=== PATIENT | female | born 1965 | race Hispanic/Latino ===

== ENCOUNTER 2017-05-02 10:14 | Emergency (ER) | payer MEDICARE, OTHER ==
[2017-05-02 10:15] VITALS: BMI 40.3
[2017-05-02 11:18] LABS: BASO % 0.6 % (0.0-2.0); EOS # 0.4 K/uL (0.0-0.7); EOS % 4.8 % (0.0-4.0); HEMATOCRIT 38.8 % (34.0-47.0); LYMPH # 1.5 K/uL (1.0-4.3); MEAN CELL VOLUME 86.7 fL (81.0-99.0); MEAN CORPUSCULAR HGB CONC 33.5 g/dL (33.0-37.0); MEAN PLATELET VOLUME 7.3 fL (7.2-11.7); MONO # 0.5 K/uL (0.0-0.8); MONO % 5.1 % (0.0-10.0); RED CELL DISTRIBUTION WIDTH 14.4 % (11.5-14.5); WHITE BLOOD COUNT 8.9 K/uL (4.8-10.8)
[2017-05-02 11:27] LABS: CHLORIDE 100 mmol/L (98-107); POTASSIUM 3.8 mmol/L (3.6-5.2); SODIUM 140 mmol/L (132-148)
[2017-05-02 11:29] LABS: AST/SGOT 20 U/L (14-36); BILIRUBIN,TOTAL 0.6 mg/dL (0.2-1.3); CARBON DIOXIDE 31 mmol/L (22-30); GFR AFRICAN-AMERICAN > 60
[2017-05-02 11:30] LABS: ALB/GLOB RATIO 1.3 (1.0-2.1); ALKALINE PHOSPHATASE 103 U/L (38-126); ALT/SGPT 26 U/L (9-52); BLOOD UREA NITROGEN 12 mg/dL (7-17); CALCIUM 8.8 mg/dl (8.6-10.4); GLUCOSE,RANDOM 112 mg/dL (65-105); TOTAL PROTEIN 7.1 g/dL (6.3-8.3)
[2017-05-02] MEDS ORDERED: Sodium Chloride 0.9% 1,000 ML IV ONE (11:45)
[2017-05-02] MEDS ORDERED: Sodium Chloride 0.9% 1,000 ML ONE (11:54)
[2017-05-02] MEDS ORDERED: Morphine 4 MG/ML VIAL ONE (11:54)
[2017-05-02 13:36] LABS: RBC URINE 1 /hpf (0-3); URINE BILIRUBIN NEGATIVE (NEGATIVE); URINE BLOOD NEGATIVE (NEGATIVE); URINE COLOR Yellow (YELLOW); URINE GLUCOSE (UA) NORMAL (Normal); URINE KETONE NEGATIVE (NEGATIVE); URINE LEUKOCYTE ESTERASE NEG Leu/uL (Negative); URINE PROTEIN NEGATIVE (NEGATIVE); URINE UROBILINOGEN NORMAL mg/dL (0.2-1.0); WBC URINE 1 /hpf (0-5)
[2017-05-02] MEDS ORDERED: HYDROmorphone 1 mg/ml ISec IVP STA (13:53)
[2017-05-02] MEDS ORDERED: HYDROmorphone 1 mg/ml ISec ONE (14:23)
--- NOTE | 2017-05-02 14:24 | C.PDOC ---
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 Patient states that her pain is consistent with prior episodes. Notes that she is prescribed medication for the pain, but does not want to take it because she feels nauseated. Patient admits to non-bloody/non-bilious vomiting. Patient denies diarrhea, chest pain, shortness of breath, fevers, dysuria, or any other associated symptoms. No other complaints at this time. Of note, patient has been evaluated in ED for same complaint, multiple times in the past. Time Seen by Provider: 05/02/17 10:58 Chief Complaint (Nursing): Abdominal Pain Past Medical History Reviewed: Historical Data, Nursing Documentation, Vital Signs Vital Signs: Last Vital Signs Temp 98.9 F 05/02/17 15:55 Pulse 95 H 05/02/17 15:55 Resp 20 05/02/17 15:55 BP 130/83 05/02/17 15:55 Pulse Ox 97 05/02/17 16:21 - Medical History PMH: Anemia, Arthritis, Asthma, COPD (ASTHMA), Diabetes (NIDDM), Gastritis, HTN , Hypercholesterolemia Denies: Chronic Kidney Disease Surgical History: Appendectomy, Cholecystectomy - [facility] Procedures CENTRAL VENOUS CATHETER PLACEMENT WITH GUIDANCE (08/07/15) DRAINAGE OF STOMACH, ENDO, DIAGN (11/16/15) ESOPHAGOGASTRODUODENOSCOPY [EGD] W/CLOSED BIOPSY (12/11/14) INFLUENZA VACCINATION (10/15/13) INJECT/INFUSE NEC (01/17/14) INSERTION OF INFUSION DEV INTO L AXILLA VEIN, PERC APPROACH (04/03/16) OCCUPATIONAL THERAPY (05/22/14) OTH INCIDENT APPENDECTOMY (05/09/14) OTH LYSIS-PERITONEAL ADHES (05/09/14) PHYSICAL THERAPY NEC (05/22/14) VACCINATION NEC (10/15/13) VENOUS CATHETERIZATION NEC (05/09/14) Family History: States: No Known Family Hx - Social History Hx Tobacco Use: No Hx Alcohol Use: No Hx Substance Use: No - Immunization History Hx Tetanus Toxoid Vaccination: No Hx Influenza Vaccination: No Hx Pneumococcal Vaccination: No Review Of Systems Except As Marked, All Systems Reviewed And Found Negative. Constitutional: Negative for: Fever, Chills Cardiovascular: Negative for: Chest Pain, Palpitations Respiratory: Negative for: Shortness of Breath Gastrointestinal: Positive for: Nausea, Vomiting, Abdominal Pain Physical Exam - Physical Exam Appears: Non-toxic, No Acute Distress (Uncomfortable.), Other (Moaning. Morbidly obese.) Skin: Warm, Dry, No Rash Neck: Normal ROM Chest: Symmetrical Cardiovascular: Rhythm Regular, No Murmur Respiratory: Normal Breath Sounds, No Accessory Muscle Use Gastrointestinal/Abdominal: Soft, Tenderness (Mild, diffuse.), No Guarding, No Rebound, Other ((-)[place], (-)[place]) Extremity: Normal ROM ED Course And Treatment - Laboratory Results Result Diagrams: 05/02/17 11:03 05/02/17 11:03 O2 Sat by Pulse Oximetry: 97 Progress Note: Bloodwork, UA/HCG, ordered and reviewed. Patient treated with IV Diladud, IV Morphine, IVFs, IV Reglan and IV Zofran. Progress: Patient is resting comfortably and appears to be in no acute distress; Pts abdomen remains soft and non-tender, She is tolerating PO without difficulty. Patient feels comfortable going home. Patient will be discharged home for outpatient f/u with clinic/PMD in 1-2 days. Disposition - Disposition Referrals: Cammy Allison MD [Staff Provider] - Disposition: HOME/ ROUTINE Disposition Time: 15:30 Condition: STABLE Additional Instructions: FOLLOW UP WITH YOUR DOCTOR IN 1-2 DAYS USE MEDICATIONS NEEDED FOR PAIN RETURN TO ER IF SYMPTOMS WORSEN/RETURN Prescriptions: Acetaminophen with Codeine [Tylenol with Codeine #3 Tablet] 1 each PO Q6 PRN # 12 tablet PRN Reason: pain Ondansetron [Zofran Odt] 4 mg PO Q8 PRN #10 odt PRN Reason: Nausea/Vomiting Instructions: Abdominal Pain (ED) Print Language: BELARUSIAN - Clinical Impression Clinical Impression: Chronic abdominal pain - Scribe Statement The provider has reviewed the documentation as recorded by the Richy Roberto All medical record entries made by the Silasibgwendolyn were at my direction and personally dictated by me. I have reviewed the chart and agree that the record accurately reflects my personal performance of the history, physical exam, medical decision making, and the department course for this patient. I have also personally directed, reviewed, and agree with the discharge instructions and disposition.
[2017-05-02 15:56] VITALS: BP 130/83; PULSE 95; RESP 20; TEMP 98.9
[2017-05-02 16:22] VITALS: O2SAT 97
== END 2017-05-02 15:56 | disposition home or self-care (01) ==
LOC: C.ER 10:14
DX: G89.29 Other chronic pain (principal); R10.9 Unspecified abdominal pain
CPT/HCPCS: 80053; 81001; 83690; 84703; 85025; 96361; 96374; 96375; 99285; J1170; J2270; J2405; J2765; J7040

== ENCOUNTER 2017-07-28 10:47 | Inpatient (IN) | payer MEDICARE, OTHER ==
[2017-07-28 10:48] VITALS: BMI 40.3
--- NOTE | 2017-07-28 11:12 | C.PDOC ---
History Of Present Illness 52 yr old female brought in via EMS, with PMHx of anemia, arthritis, asthma, diabetes, gastritis, hypertension and hypercholesterolemia, presents to the ER with complaints of chest pain. Patient is accompanied by son. Video sign language was brought to bedside immediately. Son reports patient has long history of difficulty breathing and is on home O2 and patient has chronic pain and is on narcotics, which she recently ran out of. Upon arrival, patient is agitated, grabbing her chest and refusing to use the video sign language. Patient is hitting the stretcher and unwilling to be examined. ROS is limited due to agitation. Time Seen by Provider: 07/28/17 10:59 Chief Complaint (Nursing): Chest Pain History Per: Family (Son) History/Exam Limitations: no limitations Onset/Duration Of Symptoms: Persistent Past Medical History Reviewed: Historical Data, Nursing Documentation, Vital Signs Vital Signs: Last Vital Signs Temp 97.4 F L 07/28/17 18:03 Pulse 102 H 07/28/17 18:03 Resp 20 07/28/17 18:03 BP 154/92 H 07/28/17 18:03 Pulse Ox 94 L 07/28/17 18:03 - Medical History PMH: Anemia, Arthritis, Asthma, COPD (ASTHMA), Diabetes (NIDDM), Gastritis, HTN , Hypercholesterolemia Surgical History: Appendectomy, Cholecystectomy - [facility] Procedures CENTRAL VENOUS CATHETER PLACEMENT WITH GUIDANCE (08/07/15) DRAINAGE OF STOMACH, ENDO, DIAGN (11/16/15) ESOPHAGOGASTRODUODENOSCOPY [EGD] W/CLOSED BIOPSY (12/11/14) INFLUENZA VACCINATION (10/15/13) INJECT/INFUSE NEC (01/17/14) INSERTION OF INFUSION DEV INTO L AXILLA VEIN, PERC APPROACH (04/03/16) OCCUPATIONAL THERAPY (05/22/14) OTH INCIDENT APPENDECTOMY (05/09/14) OTH LYSIS-PERITONEAL ADHES (05/09/14) PHYSICAL THERAPY NEC (05/22/14) VACCINATION NEC (10/15/13) VENOUS CATHETERIZATION NEC (05/09/14) Family History: States: No Known Family Hx - Social History Hx Tobacco Use: No Hx Alcohol Use: No Hx Substance Use: No - Immunization History Hx Tetanus Toxoid Vaccination: No Hx Influenza Vaccination: No Hx Pneumococcal Vaccination: No Review Of Systems Review Of Systems: ROS cannot be obtained secondary to pt's inabilty to answer questions. Physical Exam - Physical Exam Appears: Combative, Agitated Skin: Normal Color, Warm, Dry Head: Atraumatic, Normacephalic Eye(s): bilateral: Normal Inspection, PERRL, EOMI Neck: Supple Chest: Symmetrical, No Deformity, No Tenderness Cardiovascular: Rhythm Regular Respiratory: Normal Breath Sounds, No Rales, No Rhonchi, No Wheezing Gastrointestinal/Abdominal: Soft, No Tenderness, No Mass, No Distention Extremity: Normal ROM ED Course And Treatment - Laboratory Results Result Diagrams: 07/28/17 11:56 07/28/17 11:56 O2 Sat by Pulse Oximetry: 96 (RA) Pulse Ox Interpretation: Normal - Radiology CXR: Viewed By Me, Read By Radiologist CXR Interpretation: Yes: No Acute Disease Medical Decision Making Medical Decision Making: Cxray negative. Trop x 1 negative. EKG shows NSR at 143bpm with non-specific ST changes. On reevaluation, patient is more calm and agrees to use video sign language. She reports midsternal non-radiating chest pain. She denies fever, chills, cough, uri, abdominal pain. She reports that she ran out of her narcotic medication and has chronic pain. She reports feeling better after morphine and patient actually slept in ED. Spoke to PMD Dr. Betancur and ordered KUB to r/o obstruction (which was negative). Due to age and obesity, as well as lack of prior cardiac workup, will transfer to tele observation for chest pain. Disposition - Disposition Disposition: HOSPITALIZED Disposition Time: 13:49 Condition: FAIR - Clinical Impression Clinical Impression: Chest pain - Scribe Statement The provider has reviewed the documentation as recorded by the Silasibe Jacey Guerra Provider Attestation: All medical record entries made by the Silasibgwendolyn were at my direction and personally dictated by me. I have reviewed the chart and agree that the record accurately reflects my personal performance of the history, physical exam, medical decision making, and the department course for this patient. I have also personally directed, reviewed, and agree with the discharge instructions and disposition.
[2017-07-28] MEDS ORDERED: Sodium Chloride 0.9% 500 ML IV ONE (11:19)
[2017-07-28] MEDS ORDERED: Morphine 4 MG/ML VIAL IV ONE (11:21)
[2017-07-28] MEDS ORDERED: Sodium Chloride 0.9% 1,000 ML ONE (11:39)
[2017-07-28] MEDS ORDERED: Morphine 4 MG/ML VIAL ONE ×2 (11:39→12:47)
[2017-07-28 11:59] LABS: BASO # 0.1 K/uL (0.0-0.2); EOS # 0.5 K/uL (0.0-0.7); EOS % 4.3 % (0.0-4.0); HEMATOCRIT 39.9 % (34.0-47.0); LYMPH # 1.9 K/uL (1.0-4.3); LYMPH % 15.4 % (20.0-40.0); MEAN CELL VOLUME 87.9 fL (81.0-99.0); MEAN CORPUSCULAR HEMOGLOBIN 28.9 pg (27.0-31.0); MEAN CORPUSCULAR HGB CONC 32.8 g/dL (33.0-37.0); MEAN PLATELET VOLUME 6.8 fL (7.2-11.7); MONO # 0.8 K/uL (0.0-0.8); NRBC % 0.1 % (0.0-2.0); RED CELL DISTRIBUTION WIDTH 14.5 % (11.5-14.5); WHITE BLOOD COUNT 12.1 K/uL (4.8-10.8)
[2017-07-28 12:12] LABS: CHLORIDE 104 mmol/L (98-107)
--- NOTE | 2017-07-28 12:12 | RAD ---
HISTORY: chest pain COMPARISON: 06/12/2016 FINDINGS: LUNGS: No active pulmonary disease. PLEURA: No significant pleural effusion identified, no pneumothorax apparent. CARDIOVASCULAR: Normal. OSSEOUS STRUCTURES: No significant abnormalities. VISUALIZED UPPER ABDOMEN: Normal. OTHER FINDINGS: Large body habitus suggest IMPRESSION: No active disease.
[2017-07-28 12:13] LABS: POTASSIUM 4.8 mmol/L (3.6-5.2); SODIUM 141 mmol/L (132-148)
[2017-07-28 12:15] LABS: ALKALINE PHOSPHATASE 104 U/L (38-126); AST/SGOT 25 U/L (14-36); CARBON DIOXIDE 27 mmol/L (22-30); GFR AFRICAN-AMERICAN > 60
[2017-07-28 12:16] LABS: ALB/GLOB RATIO 1.2 (1.0-2.1); ALT/SGPT 31 U/L (9-52); BLOOD UREA NITROGEN 12 mg/dL (7-17); CALCIUM 9.2 mg/dl (8.6-10.4); GLUCOSE,RANDOM 98 mg/dL (65-105); TOTAL PROTEIN 7.1 g/dL (6.3-8.3)
[2017-07-28] MEDS ORDERED: Albuterol-Ipratrop 3 mg / 0.5 (3 ml) UD INH STA (13:50)
[2017-07-28] MEDS ORDERED: Albuterol 0.083% Inhal Sol (2.5 mg/3 mL) UD INH STA (13:50)
[2017-07-28] MEDS ORDERED: Albuterol 0.083% Inhal Sol (2.5 mg/3 mL) UD ONE (13:55)
--- NOTE | 2017-07-28 17:00 | RAD ---
HISTORY: abdominal pain COMPARISON: 03/27/2015 FINDINGS: BOWEL: Limited exam given large body habitus. Nevertheless moderate stool in the transverse colon is noted. No dilated small or large bowel loops are seen. No free air on the upright view. BONES: Normal. OTHER FINDINGS: Right upper quadrant cholecystectomy clips IMPRESSION: Moderate stool transverse colon. No mechanical obstruction or free air appreciated
[2017-07-28] MEDS: Albuterol-Ipratrop 3 mg / 0.5 (3 ml) UD INH SCH ×2 (19:16→23:27)
[2017-07-28] MEDS ORDERED: Moxifloxacin IV 400mg/250ml NS 400 MG/250 ML BAG IVPB SCH (20:00)
[2017-07-28] MEDS: (Novolog) Insulin Aspart, Recombinant 100 u/ml 10 ml vial SC SCH (21:21)
[2017-07-28] MEDS: Oxycodone/Acetaminophen 5/325 mg Tab PO PRN (23:20)
[2017-07-28] MEDS: MethylPREDNISolone 40 mg Vial IVP SCH (23:21)
[2017-07-29] MEDS: Albuterol-Ipratrop 3 mg / 0.5 (3 ml) UD INH SCH ×6 (03:06→21:48)
[2017-07-29] MEDS: MethylPREDNISolone 40 mg Vial IVP SCH ×3 (05:46→17:35)
[2017-07-29] MEDS: (Novolog) Insulin Aspart, Recombinant 100 u/ml 10 ml vial SC SCH ×4 (07:30→22:00)
[2017-07-29] MEDS: Oxycodone/Acetaminophen 5/325 mg Tab PO PRN ×2 (09:30→16:08)
[2017-07-29] MEDS ORDERED: Moxifloxacin IV 400mg/250ml NS 400 MG/250 ML BAG IVPB SCH ×2 (10:00)
[2017-07-29] MEDS ORDERED: Pneumococcal 23-Valent Vaccine IM ONE (10:00)
[2017-07-29] MEDS: Enoxaparin 40 mg Syringe SC SCH (10:23)
[2017-07-29] MEDS ORDERED: Albuterol-Ipratrop 3 mg / 0.5 (3 ml) UD INH ONE (11:15)
--- NOTE | 2017-07-29 11:16 | CP.PCM.PN ---
Subjective - Date & Time of Evaluation Date of Evaluation: 07/29/17 Time of Evaluation: 10:59 - Subjective Subjective: PGY 2 Progress Note- Dr. Allison's service CC: shortness of breath HPI: 52 year old (deaf and mute) female with PMHx significant for asthma, HTN and questionable anxiety presents with complaints of shortness of breath for the past 3-4 days. Patient states that she normally takes her ventolin and spiriva medications as indicated. Per ED note: Patient's son reported that patient has a long history of difficulty breathing requiring home oxygen therapy. Patient also has chronic pain and is on narcotics, which she recently ran out of. History was limited due to patient's acute asthma exacerbation. Video Language interpreters were utilized but again, history was difficult to obtain due to patient's condition. Per ED Note and Medical record: PMHX-anemia, arthritis, asthma, diabetes, gastritis, hypertension and hypercholesterolemia PSHx- Ex Lap with incidental appendectomy, Cholecystectomy Fam Hx- Unknown Meds: Spiriva and Ventolin Social- Patient is a former smoker. Unknown Alcohol or drug use status. Allergies- NKDA Objective - Vital Signs/Intake and Output Vital Signs (last 24 hours): Temp Pulse Resp BP Pulse Ox 97.8 F 90 20 142/84 97 07/29/17 08:39 07/29/17 08:39 07/29/17 08:39 07/29/17 08:39 07/29/17 08:39 - Medications Medications: Current Medications Albuterol/Ipratropium (Duoneb 3 Mg/0.5 Mg (3 Ml) Ud) 3 ml INH ONCE ONE Stop: 07/29/17 11:16 Albuterol/Ipratropium (Duoneb 3 Mg/0.5 Mg (3 Ml) Ud) 3 ml INH RQ3 [facility] Enoxaparin Sodium (Lovenox) 40 mg SC DAILY [facility] Last Admin: 07/29/17 10:23 Dose: 40 mg Insulin Aspart (Novolog) 0 unit SC ACHS [facility] PRN Reason: Protocol Last Admin: 07/29/17 07:30 Dose: Not Given Methylprednisolone (Solu-Medrol) 40 mg IVP Q6 [facility] Last Admin: 07/29/17 05:46 Dose: 40 mg Moxifloxacin HCl (Avelox) 400 mg PO DAILY [facility] Moxifloxacin HCl (Avelox) 400 mg PO DAILY [facility] Oxycodone/Acetaminophen (Percocet 5/325 Mg Tab) 1 tab PO Q4H PRN PRN Reason: Pain, moderate (4-7) Stop: 07/31/17 18:04 Last Admin: 07/29/17 09:30 Dose: 1 tab Pantoprazole Sodium (Protonix Inj) 40 mg IVP DAILY [facility] Last Admin: 07/29/17 10:22 Dose: 40 mg Tiotropium [place] (Spiriva) 18 mcg INH RQ24 [facility] Tiotropium [place] (Spiriva Inhalation Handihaler Device) 1 inhaler INH ONCE ONE Stop: 07/29/17 11:06 - Constitutional Appears: Non-toxic, In Acute Distress, Older Than Stated Age - Head Exam Head Exam: ATRAUMATIC, NORMAL INSPECTION, NORMOCEPHALIC - Eye Exam Eye Exam: EOMI, Normal appearance, PERRL Pupil Exam: NORMAL ACCOMODATION - ENT Exam ENT Exam: Mucous Membranes Moist - Neck Exam Neck Exam: Full ROM - Respiratory Exam Respiratory Exam: Wheezes. absent: NORMAL BREATHING PATTERN - Cardiovascular Exam Cardiovascular Exam: +S1, +S2 - GI/Abdominal Exam GI & Abdominal Exam: Distended, Soft, Normal Bowel Sounds. absent: Firm - Extremities Exam Extremities Exam: Full ROM, Normal Capillary Refill, Normal Inspection, Tenderness (Right LE greater than Left LE) - Back Exam Back Exam: Full ROM - Neurological Exam Neurological Exam: Alert, Awake, CN II-XII Intact, Oriented x3 - Psychiatric Exam Psychiatric exam: Anxious, Normal Affect, Normal Mood - Skin Skin Exam: Dry, Intact, Warm - Additional Findings Additional findings: large body habitus Assessment and Plan - Assessment and Plan (Free Text) Assessment: Asthma exacerbation Assessment & Plan: In mild distress earlier this morning Stat Duoneb treatment given, Duonebs increased to Q3, spiriva added on board. Advair pump bedside. Solumedrol dose given. WBC 12.1 on admission. Chest XRAY performed in the ED did not show signs of active disease and thus antibiotics were discontinued. This is likely asthma exacerbation and not pneumonia. Continue Solumedrol 40 mg IVP q6H Continue meds as scheduled and mentioned above On Oxygen n/c Chest Pain Assessment & Plan: On Telemetry GUERLINE negative x3 EKG- Sinus tachycardia Although considerations were made for CT scan of chest or VQ scan to rule out PE , it was later discussed that patient's presentation was likely moreso due to asthma in light of chronic medical history and thus this study was not performed as decided by attending. Patient's prior medical course well known to attending physician. D-Dimer- Negative findings. F/U venous dopplers to rule out DVT Lower extremity Leg Pain Assessment & Plan: F/U venous dopplers Right LE more tender than left Abdominal pain Assessment & Plan: Likely secondary to post operative adhesions/opioid induced constipation due to longtime use of opioids Constipation Assessment & Plan: As noted above Colace daily Increase water intake Prophylactic measure Assessment & Plan: Protonix Lovenox [place] Discussed extensively with attending. All decision management and planning determined by Dr. Allison.
[2017-07-30] MEDS: Albuterol-Ipratrop 3 mg / 0.5 (3 ml) UD INH SCH ×10 (00:05→23:37)
[2017-07-30] MEDS: MethylPREDNISolone 40 mg Vial IVP SCH ×5 (00:33→23:48)
[2017-07-30 07:25] LABS: BASO % 0.1 % (0.0-2.0); HEMATOCRIT 38.1 % (34.0-47.0); LYMPH # 0.7 K/uL (1.0-4.3); LYMPH % 5.1 % (20.0-40.0); MEAN CELL VOLUME 88.2 fL (81.0-99.0); MEAN CORPUSCULAR HEMOGLOBIN 28.6 pg (27.0-31.0); MEAN CORPUSCULAR HGB CONC 32.4 g/dL (33.0-37.0); MEAN PLATELET VOLUME 7.1 fL (7.2-11.7); MONO # 0.3 K/uL (0.0-0.8); MONO % 2.4 % (0.0-10.0); PLATELET COUNT 285 K/uL (130-400); RED CELL DISTRIBUTION WIDTH 14.6 % (11.5-14.5); WHITE BLOOD COUNT 13.6 K/uL (4.8-10.8)
[2017-07-30 07:59] LABS: ALB/GLOB RATIO 1.4 (1.0-2.1); ALKALINE PHOSPHATASE 93 U/L (38-126); ALT/SGPT 26 U/L (9-52); AST/SGOT 12 U/L (14-36); BILIRUBIN,TOTAL 0.3 mg/dL (0.2-1.3); BLOOD UREA NITROGEN 16 mg/dL (7-17); CALCIUM 9.7 mg/dl (8.6-10.4); CARBON DIOXIDE 29 mmol/L (22-30); CHLORIDE 99 mmol/L (98-107); GFR AFRICAN-AMERICAN > 60; GLUCOSE,RANDOM 144 mg/dL (65-105); MAGNESIUM 2.2 mg/dL (1.6-2.3); PHOSPHOROUS 2.6 mg/dL (2.5-4.5); POTASSIUM 4.2 mmol/L (3.6-5.2); SODIUM 137 mmol/L (132-148); TOTAL PROTEIN 6.3 g/dL (6.3-8.3)
[2017-07-30] MEDS: (Novolog) Insulin Aspart, Recombinant 100 u/ml 10 ml vial SC SCH ×4 (08:03→21:51)
[2017-07-30] MEDS: Oxycodone/Acetaminophen 5/325 mg Tab PO PRN ×2 (08:30→17:49)
[2017-07-30] MEDS: Tiotropium 18 mcg Cap For Inhalation INH SCH (08:54)
[2017-07-30] MEDS: Enoxaparin 40 mg Syringe SC SCH (09:48)
[2017-07-30 12:01] LABS: NEUTROPHIL 88 % (50-75); TOTAL CELLS COUNTED 100
[2017-07-30] MEDS ORDERED: Albuterol 0.042% Inhal Sol (1.25 mg/3 mL) UD INH ONE (12:26)
[2017-07-30] MEDS: guaiFENesin 200 mg/10 ml Syrup UD PO PRN ×2 (12:31→17:49)
[2017-07-30] MEDS: Fluticasone-Salmeterol 500-50mcg Diskus INH SCH (19:29)
[2017-07-31] MEDS: Albuterol-Ipratrop 3 mg / 0.5 (3 ml) UD INH SCH ×8 (02:11→23:37)
[2017-07-31] MEDS: MethylPREDNISolone 40 mg Vial IVP SCH ×4 (06:26→23:55)
[2017-07-31] MEDS: (Novolog) Insulin Aspart, Recombinant 100 u/ml 10 ml vial SC SCH ×4 (08:06→22:36)
[2017-07-31] MEDS: Fluticasone-Salmeterol 500-50mcg Diskus INH SCH ×2 (08:25→19:29)
[2017-07-31] MEDS: Tiotropium 18 mcg Cap For Inhalation INH SCH (08:26)
[2017-07-31] MEDS: Enoxaparin 40 mg Syringe SC SCH (09:06)
[2017-07-31] MEDS: guaiFENesin 200 mg/10 ml Syrup UD PO PRN ×2 (09:06→18:17)
[2017-07-31] MEDS: Oxycodone/Acetaminophen 5/325 mg Tab PO PRN ×2 (09:06→14:51)
[2017-07-31] MEDS ORDERED: Oxycodone/Acetaminophen 5/325 mg Tab PO ONE (21:33)
[2017-08-01] MEDS: Albuterol-Ipratrop 3 mg / 0.5 (3 ml) UD INH SCH ×7 (02:06→20:09)
[2017-08-01] MEDS: MethylPREDNISolone 40 mg Vial IVP SCH ×3 (05:42→17:28)
[2017-08-01] MEDS: Oxycodone/Acetaminophen 5/325 mg Tab PO PRN ×3 (05:48→18:38)
[2017-08-01] MEDS: Fluticasone-Salmeterol 500-50mcg Diskus INH SCH ×2 (07:19→20:11)
[2017-08-01] MEDS: Tiotropium 18 mcg Cap For Inhalation INH SCH (07:19)
[2017-08-01] MEDS: (Novolog) Insulin Aspart, Recombinant 100 u/ml 10 ml vial SC SCH ×4 (08:17→21:20)
[2017-08-01] MEDS: Enoxaparin 40 mg Syringe SC SCH (09:24)
[2017-08-01] MEDS: guaiFENesin 200 mg/10 ml Syrup UD PO PRN (22:07)
[2017-08-02] MEDS: Albuterol-Ipratrop 3 mg / 0.5 (3 ml) UD INH SCH ×9 (00:34→23:43)
[2017-08-02] MEDS: MethylPREDNISolone 40 mg Vial IVP SCH ×4 (00:56→18:00)
[2017-08-02 01:48] VITALS: RESP 20
[2017-08-02] MEDS: Oxycodone/Acetaminophen 5/325 mg Tab PO PRN ×2 (03:41→18:00)
[2017-08-02] MEDS: Fluticasone-Salmeterol 500-50mcg Diskus INH SCH (07:37)
[2017-08-02] MEDS: Tiotropium 18 mcg Cap For Inhalation INH SCH (07:37)
[2017-08-02] MEDS: (Novolog) Insulin Aspart, Recombinant 100 u/ml 10 ml vial SC SCH ×4 (08:08→21:18)
--- NOTE | 2017-08-02 09:52 | CP.PCM.PN ---
Subjective - Date & Time of Evaluation Date of Evaluation: 08/02/17 Time of Evaluation: 07:20 - Subjective Subjective: PGY2 Resident - Medicine Progress Note Patient seen and examined at bedside. No overnight events per nursing. Patient reports that she continues to feel SOB, and has not improved much. She admits to non-productive cough for several days, and is still not able to produce much mucous, despite feeling congested. Otherwise she has no acute complaints, is tolerating her diet, and reports regular BMs. Objective - Vital Signs/Intake and Output Vital Signs (last 24 hours): Temp Pulse Resp BP Pulse Ox 97.5 F L 107 H 20 139/89 95 08/02/17 08:42 08/02/17 08:42 08/02/17 08:42 08/02/17 08:42 08/02/17 08:42 - Medications Medications: Current Medications Albuterol/Ipratropium (Duoneb 3 Mg/0.5 Mg (3 Ml) Ud) 3 ml INH RQ3 [facility] Last Admin: 08/02/17 09:18 Dose: 3 ml Alprazolam (Xanax) 0.25 mg PO Q12 PRN PRN Reason: Anxiety Stop: 08/08/17 10:01 Last Admin: 08/01/17 09:00 Dose: 0.25 mg Enoxaparin Sodium (Lovenox) 40 mg SC DAILY [facility] Last Admin: 08/01/17 09:24 Dose: 40 mg Guaifenesin (Robitussin) 200 mg PO Q4H PRN PRN Reason: Cough and congestion Last Admin: 08/01/17 22:07 Dose: 200 mg Insulin Aspart (Novolog) 0 unit SC ACHS [facility] PRN Reason: Protocol Last Admin: 08/02/17 08:08 Dose: Not Given Methylprednisolone (Solu-Medrol) 40 mg IVP Q6 [facility] Last Admin: 08/02/17 07:52 Dose: 40 mg Oxycodone/Acetaminophen (Percocet 5/325 Mg Tab) 1 tab PO Q4H PRN PRN Reason: Pain, moderate (4-7) Stop: 08/03/17 22:32 Last Admin: 08/02/17 03:41 Dose: 1 tab Pantoprazole Sodium (Protonix Inj) 40 mg IVP DAILY [facility] Last Admin: 08/01/17 09:00 Dose: 40 mg Fluticasone/Salmeterol (Advair Diskus 500/50) 1 puff INH RQ12 [facility] Last Admin: 08/02/17 07:37 Dose: Not Given Tiotropium [place] (Spiriva) 18 mcg INH RQ24 [facility] Last Admin: 08/02/17 07:37 Dose: Not Given - Labs Labs: 07/30/17 07:16 07/30/17 07:16 - Additional Findings Additional findings: - Constitutional Appears: Non-toxic, In Acute Distress, Older Than Stated Age - Head Exam Head Exam: ATRAUMATIC, NORMAL INSPECTION, NORMOCEPHALIC - Eye Exam Eye Exam: EOMI, Normal appearance, PERRL Pupil Exam: NORMAL ACCOMODATION - ENT Exam ENT Exam: Mucous Membranes Moist - Neck Exam Neck Exam: Full ROM - Respiratory Exam Respiratory Exam: Wheezes (diffuse, bilateral). absent: NORMAL BREATHING PATTERN, Rhonchi, Rales -tenderness to palpation of chest wall, b/l sternum rib 2-5 - Cardiovascular Exam Cardiovascular Exam: +S1, +S2, Regular Rate - intermittently tachycardic - GI/Abdominal Exam GI & Abdominal Exam: Distended, Soft, Normal Bowel Sounds. absent: Firm - Extremities Exam Extremities Exam: Full ROM, Normal Capillary Refill, Normal Inspection, Tenderness (Right LE greater than Left LE, mildly improved) - Back Exam Back Exam: Full ROM - Neurological Exam Neurological Exam: Alert, Awake, CN II-XII Intact, Oriented x3 - Psychiatric Exam Psychiatric exam: Anxious, Normal Affect, Normal Mood - Skin Skin Exam: Dry, Intact, Warm - Additional Findings Additional findings: large body habitus Assessment and Plan - Assessment and Plan (Free Text) Assessment: Asthma exacerbation Assessment & Plan: 08/02: Patient saturating well on 2-3L NC. Continues to complain of non- productive cough with congestion. Changed Robitussin from PRN to Q6 [facility]. In mild distress earlier this morning Stat Duoneb treatment given, Duonebs increased to Q3, spiriva added on board. Advair pump bedside. Solumedrol dose given. WBC 12.1 on admission. Chest XRAY performed in the ED did not show signs of active disease and thus antibiotics were discontinued. This is likely asthma exacerbation and not pneumonia. Continue Solumedrol 40 mg IVP q6H Continue meds as scheduled and mentioned above Costochondritis Assessment & Plan: 08/02: likely costochondritis 2/2 coughing for several days. tenderness to palpation of chest wall. Tylenol 650mg PO Q6H PRN pain. On Telemetry GUERLINE negative x3 EKG- Sinus tachycardia Although considerations were made for CT scan of chest or VQ scan to rule out PE , it was later discussed that patient's presentation was likely moreso due to asthma in light of chronic medical history and thus this study was not performed as decided by attending. Patient's prior medical course well known to attending physician. D-Dimer- Negative findings. F/U venous dopplers - prelim negative Lower extremity Leg Pain Assessment & Plan: 08/02: venous Doppler - negative. Right LE more tender than left Abdominal pain Assessment & Plan: 08/02: abdominal Xray shows stool in transverse colon, no obstruction. Likely secondary to post operative adhesions/opioid induced constipation due to longtime use of opioids Constipation Assessment & Plan: 08/02: abdominal Xray shows stool in transverse colon, no obstruction. As noted above Colace daily Increase water intake Prophylactic measure Assessment & Plan: Protonix Lovenox [place] Discussed extensively with attending. All decision management and planning determined by Dr. Allison.
[2017-08-02] MEDS: Enoxaparin 40 mg Syringe SC SCH (09:58)
--- NOTE | 2017-08-02 10:53 | VASCLAB ---
PROCEDURE: Lower Extremity Venous Duplex Exam. HISTORY: Unilateral leg pain PRIORS: None. TECHNIQUE: Bilateral common femoral, femoral, popliteal and posterior tibial, peroneal and great saphenous veins were evaluated. Flow was assessed with color Doppler, compressibility, assessment of phasic flow and augmentation response. Report prepared by Ramon Purvis, RIGOBERTO, RVT FINDINGS: RIGHT: 1. Common Femoral Vein: 1.1. Compressibility - Fully compressible: Thrombus - None : Flow - Phasic: Augmentation -Normal: Reflux - None. 2. Femoral Vein: 2.1. Compressibility - Fully compressible: Thrombus - None : Flow - Phasic: Augmentation -Normal: Reflux - None. 3. Popliteal Vein: 3.1. Compressibility - Fully compressible: Thrombus - None : Flow - Phasic: Augmentation -Normal: Reflux - None. 4. Posterior Tibial Vein: 4.1. Compressibility - Fully compressible: Thrombus - None: Flow - Phasic: Augmentation -Normal: Reflux - None. 5. Peroneal Vein: 5.1. Compressibility - Fully compressible: Thrombus - None: Flow - Phasic: Augmentation -Normal: Reflux - None. 6. Great Saphenous Vein: 6.1. Compressibility - Fully compressible: Thrombus - None: Flow - Phasic: Augmentation - Normal: Reflux - None. LEFT: 1. Common Femoral Vein: 1.1. Compressibility - Fully compressible: Thrombus - None: Flow - Phasic: Augmentation -Normal: Reflux - None. 2. Femoral Vein: 2.1. Compressibility - Fully compressible: Thrombus - None: Flow - Phasic: Augmentation -Normal: Reflux - None. 3. Popliteal Vein: 3.1. Compressibility - Fully compressible: Thrombus - None : Flow - Phasic: Augmentation -Normal: Reflux - None. 4. Posterior Tibial Vein: 4.1. Compressibility - Fully compressible: Thrombus - None: Flow - Phasic: Augmentation -Normal: Reflux - None. 5. Peroneal Vein: 5.1. Compressibility - Fully compressible: Thrombus - None: Flow - Phasic: Augmentation -Normal: Reflux - None. 6. Great Saphenous Vein: 6.1. Compressibility - Fully compressible: Thrombus - None: Flow - Phasic: Augmentation - Normal: Reflux - None. OTHER FINDINGS: Right: None significant. Left: None significant. IMPRESSION: Right: No evidence of deep or superficial vein thrombosis of the right lower extremity. Normal valve function noted of the right side. Left: No evidence of deep or superficial vein thrombosis of the left lower extremity. Normal valve function noted of the left side.
[2017-08-02 11:28] LABS: BASO % 0.2 % (0.0-2.0); HEMATOCRIT 40.4 % (34.0-47.0); LYMPH # 0.7 K/uL (1.0-4.3); MEAN CELL VOLUME 88.1 fL (81.0-99.0); MEAN CORPUSCULAR HEMOGLOBIN 28.8 pg (27.0-31.0); MEAN CORPUSCULAR HGB CONC 32.6 g/dL (33.0-37.0); MEAN PLATELET VOLUME 7.1 fL (7.2-11.7); MONO # 0.6 K/uL (0.0-0.8); PLATELET COUNT 313 K/uL (130-400); WHITE BLOOD COUNT 14.7 K/uL (4.8-10.8)
[2017-08-02 11:40] LABS: CHLORIDE 100 mmol/L (98-107); POTASSIUM 4.2 mmol/L (3.6-5.2); SODIUM 143 mmol/L (132-148)
[2017-08-02 11:42] LABS: ALB/GLOB RATIO 1.4 (1.0-2.1); ALKALINE PHOSPHATASE 86 U/L (38-126); ALT/SGPT 40 U/L (9-52); AST/SGOT 15 U/L (14-36); BILIRUBIN,TOTAL 0.5 mg/dL (0.2-1.3); BLOOD UREA NITROGEN 27 mg/dL (7-17); CARBON DIOXIDE 27 mmol/L (22-30); GFR AFRICAN-AMERICAN > 60; TOTAL PROTEIN 6.8 g/dL (6.3-8.3)
[2017-08-02 11:43] LABS: CALCIUM 9.3 mg/dl (8.6-10.4); GLUCOSE,RANDOM 160 mg/dL (65-105); PHOSPHOROUS 2.6 mg/dL (2.5-4.5)
[2017-08-02 11:53] LABS: NEUTROPHIL 87 % (50-75); TOTAL CELLS COUNTED 100
[2017-08-02] MEDS: guaiFENesin 200 mg/10 ml Syrup UD PO SCH ×2 (18:00→21:20)
[2017-08-03] MEDS: Oxycodone/Acetaminophen 5/325 mg Tab PO PRN ×2 (00:08→05:35)
[2017-08-03] MEDS: MethylPREDNISolone 40 mg Vial IVP SCH ×3 (00:08→12:35)
--- NOTE | 2017-08-03 00:40 | CARD ---
APPROVED REPORT EKG Measurement Heart [id number] <Conclusion> Sinus tachycardia Low voltage QRS Nonspecific ST abnormality Abnormal ECG
[2017-08-03] MEDS: Albuterol-Ipratrop 3 mg / 0.5 (3 ml) UD INH SCH ×4 (02:04→11:54)
[2017-08-03] MEDS: guaiFENesin 200 mg/10 ml Syrup UD PO SCH ×3 (04:53→10:10)
[2017-08-03 06:32] LABS: BASO % 0.1 % (0.0-2.0); HEMATOCRIT 38.7 % (34.0-47.0); LYMPH # 1.1 K/uL (1.0-4.3); LYMPH % 7.6 % (20.0-40.0); MEAN CELL VOLUME 87.3 fL (81.0-99.0); MEAN CORPUSCULAR HEMOGLOBIN 29.3 pg (27.0-31.0); MEAN CORPUSCULAR HGB CONC 33.6 g/dL (33.0-37.0); MONO # 0.8 K/uL (0.0-0.8); MONO % 5.8 % (0.0-10.0); NRBC % 0.1 % (0.0-2.0); PLATELET COUNT 262 K/uL (130-400); RED CELL DISTRIBUTION WIDTH 14.9 % (11.5-14.5); WHITE BLOOD COUNT 14.5 K/uL (4.8-10.8)
[2017-08-03 07:32] LABS: CHLORIDE 100 mmol/L (98-107); POTASSIUM 4.2 mmol/L (3.6-5.2); SODIUM 137 mmol/L (132-148)
[2017-08-03 07:34] LABS: AST/SGOT 14 U/L (14-36); BILIRUBIN,TOTAL 0.4 mg/dL (0.2-1.3); CARBON DIOXIDE 27 mmol/L (22-30); GFR AFRICAN-AMERICAN > 60
[2017-08-03 07:35] LABS: ALB/GLOB RATIO 1.4 (1.0-2.1); ALKALINE PHOSPHATASE 79 U/L (38-126); ALT/SGPT 33 U/L (9-52); BLOOD UREA NITROGEN 26 mg/dL (7-17); CALCIUM 9.1 mg/dl (8.6-10.4); GLUCOSE,RANDOM 121 mg/dL (65-105); MAGNESIUM 2.2 mg/dL (1.6-2.3); PHOSPHOROUS 3.9 mg/dL (2.5-4.5); TOTAL PROTEIN 6.4 g/dL (6.3-8.3)
[2017-08-03] MEDS: Fluticasone-Salmeterol 500-50mcg Diskus INH SCH (08:05)
[2017-08-03] MEDS: Tiotropium 18 mcg Cap For Inhalation INH SCH (08:05)
[2017-08-03] MEDS: (Novolog) Insulin Aspart, Recombinant 100 u/ml 10 ml vial SC SCH ×2 (08:08→12:30)
[2017-08-03 08:31] VITALS: BP 115/81; TEMP 97.8
[2017-08-03 09:04] LABS: NEUTROPHIL 89 % (50-75); TOTAL CELLS COUNTED 100
[2017-08-03] MEDS: Enoxaparin 40 mg Syringe SC SCH (10:09)
--- NOTE | 2017-08-03 11:33 | CP.PCM.PN ---
Subjective - Date & Time of Evaluation Date of Evaluation: 08/03/17 Time of Evaluation: 11:30 - Subjective Subjective: PROGRESS NOTE. Service for Dr. Allison Pt seen and examined at bedside. No acute distress. No events overnight. Pt still having some constipation. Pt feels breathing is better, with some coughing still. No fevers, chills, vomiting, chest pain, shortness of breath. Objective - Vital Signs/Intake and Output Vital Signs (last 24 hours): Temp Pulse Resp BP Pulse Ox 97.8 F 91 H 20 115/81 95 08/03/17 08:29 08/03/17 08:29 08/03/17 08:29 08/03/17 08:29 08/03/17 08:29 - Medications Medications: Current Medications Albuterol/Ipratropium (Duoneb 3 Mg/0.5 Mg (3 Ml) Ud) 3 ml INH RQ3 [facility] Last Admin: 08/03/17 08:04 Dose: 3 ml Alprazolam (Xanax) 0.25 mg PO Q12 PRN PRN Reason: Anxiety Stop: 08/08/17 10:01 Last Admin: 08/02/17 21:20 Dose: 0.25 mg Enoxaparin Sodium (Lovenox) 40 mg SC DAILY [facility] Last Admin: 08/03/17 10:09 Dose: 40 mg Guaifenesin (Robitussin) 200 mg PO Q6H [facility] Last Admin: 08/03/17 10:10 Dose: 200 mg Insulin Aspart (Novolog) 0 unit SC ACHS [facility] PRN Reason: Protocol Last Admin: 08/03/17 08:08 Dose: Not Given Methylprednisolone (Solu-Medrol) 40 mg IVP Q6 [facility] Last Admin: 08/03/17 05:37 Dose: 40 mg Oxycodone/Acetaminophen (Percocet 5/325 Mg Tab) 1 tab PO Q4H PRN PRN Reason: Pain, severe (8-10) Stop: 08/03/17 22:32 Last Admin: 08/03/17 05:35 Dose: 1 tab Pantoprazole Sodium (Protonix Inj) 40 mg IVP DAILY [facility] Last Admin: 08/03/17 10:09 Dose: 40 mg Fluticasone/Salmeterol (Advair Diskus 500/50) 1 puff INH RQ12 [facility] Last Admin: 08/03/17 08:05 Dose: 1 puff Tiotropium [place] (Spiriva) 18 mcg INH RQ24 [facility] Last Admin: 08/03/17 08:05 Dose: 18 mcg - Labs Labs: 08/03/17 06:20 08/03/17 06:20 - Constitutional Appears: Non-toxic, No Acute Distress - Head Exam Head Exam: ATRAUMATIC, NORMAL INSPECTION, NORMOCEPHALIC - Eye Exam Eye Exam: EOMI - ENT Exam ENT Exam: Mucous Membranes Moist - Neck Exam Neck Exam: Full ROM, Normal Inspection - Respiratory Exam Respiratory Exam: Wheezes. absent: Respiratory Distress Additional comments: Minimal wheezing - Cardiovascular Exam Cardiovascular Exam: +S1, +S2 - GI/Abdominal Exam GI & Abdominal Exam: Soft, Normal Bowel Sounds. absent: Tenderness - Back Exam Back Exam: NORMAL INSPECTION - Neurological Exam Neurological Exam: Alert, Awake, Oriented x3 - Psychiatric Exam Psychiatric exam: Normal Affect, Normal Mood - Skin Skin Exam: Dry, Intact, Normal Color, Warm Assessment and Plan - Assessment and Plan (Free Text) Assessment: This is a 52 yo female presenting with Asthma exacerbation 08/03: pt breathing much improved. -continue advair 1 puff Rq12 -continue tiotropium 18 mcg daily -continue duonebs joanna -continue robitussin for cough -continue solumedrol 40 IV q 6 hrs -continue xanax for anxiety Costochondritis -chest pain likely MSK in nature -continue percocet for pain Lower extremity Leg Pain -venous dopplers negative -continue to monitor Abdominal pain -likely secondary to constipation -continue colace and increase water intake Hx of DM -continue ISS GI/DVT ppx -continue protonix daily -lovenox daily Dispo: plan for discharge home today Discussed extensively with attending. All decision management and planning determined by Dr. Allison.
[2017-08-03] MEDS ORDERED: Magnesium Hydroxide Susp 30 ml UD PO ONE (13:18)
[2017-08-03] MEDS ORDERED: MethylPREDNISolone 40 mg Vial IVP SCH ×2 (14:00→20:00)
[2017-08-03 14:14] VITALS: PULSE 96; O2SAT 96
--- NOTE | 2017-08-04 18:37 | CARD ---
APPROVED REPORT EKG Measurement Heart [id number] [id number] <Conclusion> Normal sinus rhythm Low voltage QRS Borderline ECG
--- NOTE | 2017-08-04 18:38 | CARD ---
APPROVED REPORT EKG Measurement Heart [id number] [id number] <Conclusion> Sinus tachycardia Low voltage QRS Borderline ECG
== END 2017-08-03 16:00 | disposition home or self-care (01) | DRG 202 ==
LOC: C.ER 10:47 → C.9E 13:47 → C.6T 16:42 → OBSVTOIN 07-29 13:24
PROVIDERS: ADMIT Internal Medicine Pulmonary Disease; ATTEND Internal Medicine Pulmonary Disease
DX: J45.901 Unspecified asthma with (acute) exacerbation (principal); Z68.42 Body mass index [BMI] 45.0-49.9, adult; Z99.81 Dependence on supplemental oxygen; E11.9 Type 2 diabetes mellitus without complications; I10 Essential (primary) hypertension; D64.9 Anemia, unspecified; F41.9 Anxiety disorder, unspecified; E66.9 Obesity, unspecified; H91.3 Deaf nonspeaking, not elsewhere classified; M94.0 Chondrocostal junction syndrome [Tietze]; M19.90 Unspecified osteoarthritis, unspecified site; E78.00 Pure hypercholesterolemia, unspecified; Z87.891 Personal history of nicotine dependence; K66.0 Peritoneal adhesions (postprocedural) (postinfection); K59.03 Drug induced constipation; T40.605A Adverse effect of unspecified narcotics, initial encounter; M79.606 Pain in leg, unspecified

== ENCOUNTER 2017-09-29 13:06 | Emergency (ER) | payer MEDICARE ==
[2017-09-29 13:46] VITALS: BMI 38.0
[2017-09-29 14:32] LABS: BASO # 0.1 K/uL (0.0-0.2); BASO % 0.6 % (0.0-2.0); EOS # 0.3 K/uL (0.0-0.7); EOS % 2.1 % (0.0-4.0); HEMATOCRIT 38.9 % (34.0-47.0); LYMPH # 2.1 K/uL (1.0-4.3); LYMPH % 17.2 % (20.0-40.0); MEAN CELL VOLUME 87.6 fL (81.0-99.0); MEAN CORPUSCULAR HGB CONC 33.1 g/dL (33.0-37.0); MEAN PLATELET VOLUME 6.8 fL (7.2-11.7); MONO # 0.8 K/uL (0.0-0.8); MONO % 6.2 % (0.0-10.0); RED CELL DISTRIBUTION WIDTH 15.4 % (11.5-14.5); WHITE BLOOD COUNT 12.1 K/uL (4.8-10.8)
[2017-09-29 14:41] LABS: CHLORIDE 97 mmol/L (98-107); POTASSIUM 3.4 mmol/L (3.6-5.2); SODIUM 135 mmol/L (132-148)
[2017-09-29 14:44] LABS: ALB/GLOB RATIO 1.2 (1.0-2.1); ALKALINE PHOSPHATASE 90 U/L (38-126); AST/SGOT 12 U/L (14-36); BILIRUBIN,TOTAL 0.6 mg/dL (0.2-1.3); BLOOD UREA NITROGEN 11 mg/dL (7-17); CARBON DIOXIDE 30 mmol/L (22-30); GFR AFRICAN-AMERICAN > 60; GLUCOSE,RANDOM 83 mg/dL (65-105); TOTAL PROTEIN 7.3 g/dL (6.3-8.3)
[2017-09-29 14:45] LABS: ALCOHOL SERUM < 10 mg/dl (0-10); ALT/SGPT 35 U/L (9-52); CALCIUM 9.5 mg/dl (8.6-10.4)
--- NOTE | 2017-09-29 15:20 | C.PDOC ---
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 Patient with many recent prior ER visits and hospital admissions for similar abdominal discomfort, including exploratory laproscopy. Further history difficult to obtain due to clinical condition. 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 History/Exam Limitations: clinical condition Location Of Pain/Discomfort: Diffuse Quality Of Discomfort: Cramping, "Pain" Associated Symptoms: denies: Vomiting, Diarrhea Recent travel outside of the [place]: No Past Medical History Reviewed: Historical Data, Nursing Documentation, Vital Signs Vital Signs: Last Vital Signs Temp 97.9 F 09/29/17 15:23 Pulse 97 H 09/29/17 15:23 Resp 18 09/29/17 15:23 BP 141/83 09/29/17 15:23 Pulse Ox 96 09/29/17 15:42 - Medical History PMH: Anemia, Arthritis, Asthma, COPD (ASTHMA), Diabetes (NIDDM), Gastritis, HTN , Hypercholesterolemia Denies: Chronic Kidney Disease Surgical History: Appendectomy, Cholecystectomy - [facility] Procedures CENTRAL VENOUS CATHETER PLACEMENT WITH GUIDANCE (08/07/15) DRAINAGE OF STOMACH, ENDO, DIAGN (11/16/15) ESOPHAGOGASTRODUODENOSCOPY [EGD] W/CLOSED BIOPSY (12/11/14) INFLUENZA VACCINATION (10/15/13) INJECT/INFUSE NEC (01/17/14) INSERTION OF INFUSION DEV INTO L AXILLA VEIN, PERC APPROACH (04/03/16) OCCUPATIONAL THERAPY (05/22/14) OTH INCIDENT APPENDECTOMY (05/09/14) OTH LYSIS-PERITONEAL ADHES (05/09/14) PHYSICAL THERAPY NEC (05/22/14) VACCINATION NEC (10/15/13) VENOUS CATHETERIZATION NEC (05/09/14) Family History: States: Unknown Family Hx - Social History Hx Tobacco Use: No Hx Alcohol Use: No Hx Substance Use: No - Immunization History Hx Tetanus Toxoid Vaccination: No Hx Influenza Vaccination: No Hx Pneumococcal Vaccination: No Review Of Systems Review Of Systems: ROS cannot be obtained secondary to pt's inabilty to answer questions. Physical Exam - Physical Exam Appears: Non-toxic, Other (deaf, mute, tearful, yelling, morbidly obese ) Skin: Warm, Dry Head: Atraumatic, Normacephalic Oral Mucosa: Moist Chest: Symmetrical Cardiovascular: Rhythm Regular Respiratory: Normal Breath Sounds, No Rales, No Rhonchi, No Wheezing Gastrointestinal/Abdominal: Soft, No Tenderness, Other (globus, morbidly obese, nontender) Back: Normal Inspection Extremity: Normal ROM, Capillary Refill (< 2 sec.) Neurological/Psych: Oriented x3 ED Course And Treatment - Laboratory Results Result Diagrams: 09/29/17 14:28 09/29/17 14:28 Lab Interpretation: Normal (mild elev leuk, not left shifted, ? related to steroids for copd) ECG: Interpreted By Me ECG Rhythm: Sinus Rhythm ECG Interpretation: Normal Rate From EC O2 Sat by Pulse Oximetry: 96 (RA) Pulse Ox Interpretation: Normal - Radiology CXR: Interpreted by Me CXR Interpretation: Yes: No Acute Disease - Other Rad abd x 2 X-Ray: Interpreted by Me (+FOS/gas) Progress Note: ivf/toradol Reevaluation Time: 15:20 Reassessment Condition: Improved - Physician Consult Information Outcome Of Conversation: 1350: d/w Dr. Temple- pmd- ok to d/c home wtih neg w/ u. many prior eval for abd discomfort without sig findings. Extensive narcotics/anxiety regimen Medical Decision Making Medical Decision Making: constipation chronic pain issues [place], extensive narcotic/benzo regimen for ? dx. morbid obesity, c/w large PO intake, probably provoking constipation compounded by narcotic pain relievers. Disposition Doctor Will See Patient In The: Office Counseled Patient/Family Regarding: Studies Performed, Diagnosis - Disposition Referrals: Cammy Temple MD [Staff Provider] - Disposition: HOME/ ROUTINE Disposition Time: 15:22 Condition: GOOD Additional Instructions: drink laxative now (Mag Citrate) and re-eval abdominal discomfort after using bathroom 2-3 times Continue Colace 100 mg (stool softner) to help PREVENT constipation. Consider increased fiber and drink more water Increased walking to 1/2 hour 5 days/week Loose weight Prescriptions: Magnesium Citrate [[facility] Magnesium Citrate] 300 ml PO ONCE PRN #1 bottle PRN Reason: Constipation Instructions: Constipation (ED) Forms: [employer] ([employer]) - Clinical Impression Clinical Impression: Abdominal discomfort - Scribe Statement The provider has reviewed the documentation as recorded by the Scribe SM All medical record entries made by the Scribe were at my direction and personally dictated by me. I have reviewed the chart and agree that the record accurately reflects my personal performance of the history, physical exam, medical decision making, and the department course for this patient. I have also personally directed, reviewed, and agree with the discharge instructions and disposition.
[2017-09-29 15:24] VITALS: BP 141/83; PULSE 97; RESP 18; TEMP 97.9
[2017-09-29 15:25] VITALS: O2SAT 96
--- NOTE | 2017-09-29 15:30 | RAD ---
PROCEDURE: Radiographs of the chest and abdomen (obstructive series) HISTORY: Chronic abdominal discomfort COMPARISON: No prior. TECHNIQUE: AP radiograph of the chest, with upright and supine radiographs of the abdomen. FINDINGS: CHEST: Lungs: Clear. Cardiovascular: Cardiomegaly. No evidence of acute, significant cardiovascular disease. Pleura: No pleural fluid. No pneumothorax. Other findings: None. ABDOMEN AND PELVIS: Bowel: Unremarkable bowel gas pattern. No evidence of mechanical obstruction. Free air: None. Bones: Unremarkable. Other findings: None. IMPRESSION: No significant or acute findings to account for/ related to the clinical presentation. Additional benign and/or incidental findings described above. Concordant results with the preliminary interpretation rendered by the emergency department physician procedure.
--- NOTE | 2017-09-30 19:05 | CARD ---
APPROVED REPORT EKG Measurement Heart [id number] 142P15 [id number] <Conclusion> Normal sinus rhythm Cannot rule out Inferior infarct, age undetermined Possible Anterior infarct, age undetermined Abnormal ECG
== END 2017-09-29 15:35 | disposition home or self-care (01) ==
LOC: C.ER 13:06
DX: R10.9 Unspecified abdominal pain (principal); E11.9 Type 2 diabetes mellitus without complications; E78.00 Pure hypercholesterolemia, unspecified; I10 Essential (primary) hypertension; J44.9 Chronic obstructive pulmonary disease, unspecified
CPT/HCPCS: 74022; 80053; 84484; 85025; 85610; 85730; 93005; 96374; 99285; G0480; J1885

== ENCOUNTER 2018-01-23 17:16 | Emergency (ER) | payer MEDICARE, MEDICAID ==
[2018-01-23 17:16] VITALS: BMI 38.0
--- NOTE | 2018-01-23 20:24 | C.PDOC ---
History Of Present Illness 52 year old female presents to the ER complaining of right knee pain s/p fall that occurred yesterday. States she was on a chair and fell, hitting her right knee in the process. No dizziness, head trauma, or LOC. Denies any numbness, tingling, or other injury. 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 Limitations: no limitations Onset/Duration Of Symptoms: Days (x2) Current Symptoms Are (Timing): Still Present - Knee Description Of Injury: Fell Past Medical History Reviewed: Historical Data, Nursing Documentation, Vital Signs Vital Signs: Last Vital Signs Temp 98.3 F 01/23/18 22:01 Pulse 100 H 01/23/18 22:01 Resp 22 01/23/18 22:01 BP 150/90 01/23/18 22:01 Pulse Ox 99 01/23/18 22:01 - Medical History PMH: Anemia, Arthritis, Asthma, COPD, Diabetes (NIDDM), Gastritis, HTN, Hypercholesterolemia Denies: Chronic Kidney Disease Surgical History: Appendectomy, Cholecystectomy - [facility] Procedures CENTRAL VENOUS CATHETER PLACEMENT WITH GUIDANCE (08/07/15) DRAINAGE OF STOMACH, ENDO, DIAGN (11/16/15) ESOPHAGOGASTRODUODENOSCOPY [EGD] W/CLOSED BIOPSY (12/11/14) INFLUENZA VACCINATION (10/15/13) INJECT/INFUSE NEC (01/17/14) INSERTION OF INFUSION DEV INTO L AXILLA VEIN, PERC APPROACH (04/03/16) OCCUPATIONAL THERAPY (05/22/14) OTH INCIDENT APPENDECTOMY (05/09/14) OTH LYSIS-PERITONEAL ADHES (05/09/14) PHYSICAL THERAPY NEC (05/22/14) VACCINATION NEC (10/15/13) VENOUS CATHETERIZATION NEC (05/09/14) Family History: States: Unknown Family Hx - Social History Hx Tobacco Use: No Hx Alcohol Use: No Hx Substance Use: No - Immunization History Hx Tetanus Toxoid Vaccination: No Hx Influenza Vaccination: No Hx Pneumococcal Vaccination: No Review Of Systems Except As Marked, All Systems Reviewed And Found Negative. Musculoskeletal: Positive for: Other (Right knee pain) Skin: Negative for: Lesions Neurological: Negative for: Weakness, Numbness (or tingling), Dizziness (or LOC) Physical Exam - Physical Exam Appears: Well, Non-toxic Skin: Normal Color, Warm, Dry Head: Atraumatic, Normacephalic Eye(s): bilateral: Normal Inspection, EOMI Nose: Normal Oral Mucosa: Moist Chest: Symmetrical Respiratory: No Accessory Muscle Use, Other (speaking in full sentences) Extremity: Normal ROM, Tenderness (Diffuse tenderness to right knee), No Calf Tenderness, No Deformity, No Swelling Extremity: Bilateral: Normal Color And Temperature Pulses: Left Dorsalis Pedis: Normal, Right Dorsalis Pedis: Normal Neurological/Psych: Oriented x3, Normal Speech, Normal Motor, Normal Sensation, No Other (focal deficits) ED Course And Treatment O2 Sat by Pulse Oximetry: 95 (RA) Pulse Ox Interpretation: Normal - Other Rad x-ray right knee X-Ray: Interpreted by Me, Viewed By Me Interpretation: Negative fracture, negative dislocation Progress Note: Ordered x-ray of right knee. Patient given 550 mg Naproxen PO. Informed pt of negative x-ray result. Knee immobilizer placed by RN. Son at bedsided. Discussed with son results and treatment. PT had no further questions. Pt advised to f/u with ortho in 1-2 days. Case discussed with Dr Ojeda, who reviewed XR and agree dupon plan and discharge. Disposition Counseled Patient/Family Regarding: Studies Performed, Diagnosis, Need For Followup - Disposition Referrals: Monroe Shahid III, MD [Staff Provider] - Disposition: HOME/ ROUTINE Disposition Time: 21:20 Condition: STABLE Additional Instructions: Follow up with your primary medical doctor or clinic in 2-5 days for further evaluation. Take medications as prescribed. Return to the emergency department at any time if symptoms persist or worsen. Prescriptions: Naproxen [Naprosyn] 1 tab PO BID PRN #20 tab PRN Reason: Pain Instructions: Knee Pain (DC) Forms: [employer] ([place]) - Clinical Impression Clinical Impression: Knee contusion - PA / [employer] STOCK CLERK / Resident Statement MD/DO has reviewed & agrees with the documentation as recorded. - Scribe Statement The provider has reviewed the documentation as recorded by the Scribe (Keke Mcgrath) All medical record entries made by the Scribe were at my direction and personally dictated by me. I have reviewed the chart and agree that the record accurately reflects my personal performance of the history, physical exam, medical decision making, and the department course for this patient. I have also personally directed, reviewed, and agree with the discharge instructions and disposition.
[2018-01-23] MEDS ORDERED: Naproxen 550 mg Tab PO STA (20:52)
[2018-01-23] MEDS ORDERED: Naproxen 550 mg Tab PO ONE (20:58)
[2018-01-23 22:03] VITALS: BP 150/90; PULSE 100; RESP 22; TEMP 98.3
--- NOTE | 2018-01-24 08:25 | RAD ---
PROCEDURE: HISTORY: pain COMPARISON: None TECHNIQUE: Txo projections 4 images FINDINGS: No fracture or dislocation appreciated. Superolateral right hip joint space narrowing with acetabular spurring suggested possible superolateral femoral "Bump- findings can be seen with femoral acetabular impingement syndrome. Medial and lateral tibial spine spurring central tibial spine spurring. Medial lateral knee joint space narrowing suggested. IMPRESSION: No fracture. Senescent changes as above.
--- NOTE | 2018-01-24 08:30 | RAD ---
PROCEDURE: Right Knee Radiographs. HISTORY: trauma COMPARISON: None. FINDINGS: BONES: Tibial spine and lateral knee joint line spurring present No fracture. JOINTS: Lateral femoral tibial compartment moderate to severe osteoarthrosis JOINT EFFUSION: None. OTHER FINDINGS: None. IMPRESSION: No fracture. Osteoarthrosis
[2018-01-25 19:30] VITALS: O2SAT 95
== END 2018-01-23 22:02 | disposition home or self-care (01) ==
LOC: C.ER 17:16
DX: S80.01XA Contusion of right knee, initial encounter (principal); W07.XXXA Fall from chair, initial encounter